=== PATIENT | male | born 1980 | race Caucasian/White ===

== ENCOUNTER → 2017-04-21 | Outpatient (CLI) | payer OTHER ==
[~2017-04-21] MED LIST: BENTYL 20MG20 MG/TAB PO; CITRUCEL PACKET1 PKT PO; DILAUDID 2MG TAB2 MG PO; ELAVIL10 MG PO; FIBER CHOICE1 CTB PO; HYDROCODONE/APAP; LEXAPRO10 MG PO; MICARDIS40 MG PO; MICARDIS80 MG PO; NORCO 325 MG-51 TAB PO; PROBIOTIC FORMU1 CAP PO; PROVENTIL0.09 MG/A1 IH; VIIBRYD40 MG PO; ZITHROMAX Z PA250 MG PO; ZOFRAN 4MG T4 MG/TAB PO; [UNRECOGNIZED DRUG - OTHER]
== END ==
LOC: COL.RAD 04-07 09:45
DX: H93.11 Tinnitus, right ear (principal); R51 Headache
CPT/HCPCS: A9585

== ENCOUNTER → 2018-07-21 | Outpatient (CLI) | payer OTHER | LOC: COL.RAD 07-20 08:15 | DX: K75.81 Nonalcoholic steatohepatitis (NASH) (principal); Z90.49 Acquired absence of other specified parts of digestive tract ==

== ENCOUNTER → 2019-07-20 | Outpatient (CLI) | payer OTHER | LOC: COL.RAD 08:06 | DX: K57.81 Diverticulitis of intestine, part unspecified, with perforation and abscess with bleeding (principal); K76.89 Other specified diseases of liver; Z90.49 Acquired absence of other specified parts of digestive tract ==

== ENCOUNTER → 2020-08-20 | Outpatient (CLI) | payer OTHER | END | disposition still patient (30) | LOC: COL.RAD 08-11 08:15 | DX: K75.81 Nonalcoholic steatohepatitis (NASH) (principal); Z90.49 Acquired absence of other specified parts of digestive tract ==

== ENCOUNTER → 2020-09-25 | Outpatient (CLI) | payer OTHER | LOC: COL.RAD 07:30 | DX: M50.323 Other cervical disc degeneration at C6-C7 level (principal) ==

== ENCOUNTER → 2021-09-23 | Outpatient (CLI) | payer OTHER | LOC: COL.RAD 08:02 | DX: K75.81 Nonalcoholic steatohepatitis (NASH) (principal); R94.5 Abnormal results of liver function studies; Z90.49 Acquired absence of other specified parts of digestive tract ==